=== PATIENT | male | born 1960 | race Caucasian/White ===

== ENCOUNTER 2017-03-07 02:33 | Emergency (ER) | payer OTHER ==
[~2017-03-07] VITALS: Ht 182.9 cm; Wt 96.5 kg
[2017-03-07 02:36] VITALS: Ht 182.9 cm; Wt 96.5 kg
[2017-03-07] MEDS ORDERED: ONDANSETRON (ODT) 4 MG TAB ODT STA (03:10)
[2017-03-07] MEDS ORDERED: IBUPROFEN 600 MG TAB PO ONE (03:30)
[2017-03-07] MEDS ORDERED: HYDROCODONE/APAP (5/325) TAB PO ONE (03:30)
--- NOTE | 2017-03-07 04:30 | RADRPT ---
PROCEDURE: XR right shoulder. CLINICAL INDICATION: Pain TECHNIQUE: 3 views of the right shoulder were performed. COMPARISON: None. FINDINGS: No fracture or dislocation is seen. Mild osteoarthrosis at glenohumeral joint IMPRESSION: Mild osteoarthrosis at glenohumeral joint. RPTAT: HJES .Helder Stafford MD, Date Time Electronically viewed and signed by .Helder Stafford MD, on 03/07/2017 04:29 .S/
[2017-03-07] MEDS ORDERED: NAPR-260 PO (04:36)
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
== END 2017-03-07 04:45 | disposition home or self-care (01) ==
LOC: FTE 02:33
DX: S46.911A Strain of unspecified muscle, fascia and tendon at shoulder and upper arm level, right arm, initial encounter (principal); V03.10XA Pedestrian on foot injured in collision with car, pick-up truck or van in traffic accident, initial encounter
CPT/HCPCS: 73030; Z7502; Z7610